=== PATIENT | male | born 1995 | race Caucasian/White ===

== ENCOUNTER 2020-02-07 11:46 | Outpatient (CLI) | payer OTHER | END 2020-02-07 11:56 | disposition HB | LOC: RAD 11:46 | DX: R05 Cough (principal); R10.84 Generalized abdominal pain; Z13.89 Encounter for screening for other disorder ==

== ENCOUNTER 2020-09-02 12:34 | Emergency (ER) | payer OTHER ==
[~2020-09-02] VITALS: Ht 180.3 cm; Wt 65.8 kg
[2020-09-02] MEDS ORDERED: NORFLEX100MG PO (19:12)
[2020-09-02] MEDS ORDERED: KETO10TA2 PO (19:12)
[2020-09-02] MEDS ORDERED: PEPCID AC20 MG PO (19:13)
== END 2020-09-02 19:37 | disposition home or self-care (01) ==
LOC: ER 12:34
DX: R11.11 Vomiting without nausea (principal); R51.9 Headache, unspecified; R53.81 Other malaise; R05 Cough

== ENCOUNTER 2022-10-20 10:24 | Outpatient (CLI) | payer OTHER ==
[~2022-10-20 10:24] MED LIST: KETO10TA2 PO; NORFLEX100MG PO; PEPCID AC20 MG PO
== END 2022-10-20 10:38 | disposition home or self-care (01) ==
LOC: MRI 10:24
PROVIDERS: ATTEND General Practice
DX: R51.9 Headache, unspecified (principal); R42 Dizziness and giddiness; R09.81 Nasal congestion; M54.2 Cervicalgia
CPT/HCPCS: 72141

== ENCOUNTER 2024-04-09 06:20 | Emergency (ER) | payer OTHER ==
[~2024-04-09] VITALS: Ht 182.9 cm; Wt 68.0 kg
[2024-04-09] MEDS ORDERED: NORFLEX100MG PO (06:41)
[2024-04-09] MEDS ORDERED: DICLOFENAC SODI75 MG PO (06:41)
[2024-04-09] MEDS ORDERED: TRIAMCINOLONE ACETONIDE 40 MG/ML VIAL IM ONE (06:45)
[2024-04-09] MEDS ORDERED: KETOROLAC TROMETHAMINE 60 MG VIAL IM ONE (06:45)
== END 2024-04-09 06:53 | disposition home or self-care (01) ==
LOC: ER 06:22
DX: M54.89 Other dorsalgia (principal)

== ENCOUNTER 2024-12-04 13:52 | Outpatient (CLI) | payer OTHER ==
[~2024-12-04 13:52] MED LIST changes: +DICLOFENAC SODI75 MG PO
== END 2024-12-04 14:04 | disposition home or self-care (01) ==
LOC: TOM 13:52
DX: G44.219 Episodic tension-type headache, not intractable (principal); A55 Chlamydial lymphogranuloma (venereum); L20.0 Besnier's prurigo; M54.50 Low back pain, unspecified; M62.830 Muscle spasm of back; N39.0 Urinary tract infection, site not specified; R05.9 Cough, unspecified; R09.82 Postnasal drip; R10.20 Pelvic and perineal pain unspecified side; R10.9 Unspecified abdominal pain; R21 Rash and other nonspecific skin eruption; U07.1 COVID-19; Z00.00 Encounter for general adult medical examination without abnormal findings; Z03.818 Encounter for observation for suspected exposure to other biological agents ruled out; Z13.1 Encounter for screening for diabetes mellitus; Z13.220 Encounter for screening for lipoid disorders; Z13.89 Encounter for screening for other disorder; Z71.89 Other specified counseling; Z13.228 Encounter for screening for other metabolic disorders; Z13.21 Encounter for screening for nutritional disorder; Z12.11 Encounter for screening for malignant neoplasm of colon; Z11.4 Encounter for screening for human immunodeficiency virus [HIV]; Z13.29 Encounter for screening for other suspected endocrine disorder; Z11.1 Encounter for screening for respiratory tuberculosis; Z13.0 Encounter for screening for diseases of the blood and blood-forming organs and certain disorders involving the immune mechanism; R51.9 Headache, unspecified; R09.81 Nasal congestion; R42 Dizziness and giddiness; N50.9 Disorder of male genital organs, unspecified; A64 Unspecified sexually transmitted disease; M54.2 Cervicalgia; A74.9 Chlamydial infection, unspecified; J34.3 Hypertrophy of nasal turbinates; J34.2 Deviated nasal septum; M25.511 Pain in right shoulder; J01.10 Acute frontal sinusitis, unspecified